=== PATIENT | male | born 1990 | race Caucasian/White ===

== ENCOUNTER 2020-07-06 11:44 | Outpatient (REF) | payer MEDICAID, SELFPAY ==
[2020-07-06 21:19] LABS: HCT 44.5 % (40.0-50.0); HGB 15.4 g/dL (13.5-17.5); MCH 31.1 pg (27.0-33.0); MCHC 34.6 % (32.0-36.0); MCV 89.9 fL (80-95); MPV 11.6 fL (8.0-11.0); Platelet Count 239 10^3/uL (130-400); RBC 4.95 10^6/uL (4.36-5.78); RDW-SD 39.3 fL
[2020-07-06 21:44] LABS: ALT 34 U/L (16-63); AST 19 U/L (15-37); Albumin 4.1 g/dL (3.4-5.0); Alkaline Phosphatase 98 U/L (46-116); Anion Gap 6.9 mmol/L (3-11); BUN 19 mg/dL (7-18); Bilirubin, Total 0.3 mg/dL (0.2-1.0); CO2 28.1 mmol/L (21.0-32.0); CREATININE 1.1 mg/dL (0.70-1.30); Calcium 9.1 mg/dL (8.5-10.1); Calculated LDL 110 mg/dL (<100); Chloride 107 mmol/L (98-107); Cholesterol 195 mg/dL (<200); Glucose 85 mg/dL (74-106); HDL Cholesterol 66 mg/dL (40-60); Potassium 4.3 mmol/L (3.5-5.1); Sodium 142 mmol/L (136-145); Triglyceride 96 mg/dL (<150)
== END 2020-07-06 11:45 | disposition home or self-care (01) ==
LOC: NCHCN 11:44
PROVIDERS: Visit Provider Nurse Practitioner Family
DX: Z13.0 Encounter for screening for diseases of the blood and blood-forming organs and certain disorders involving the immune mechanism (principal); Z13.228 Encounter for screening for other metabolic disorders; Z13.220 Encounter for screening for lipoid disorders; Z00.00 Encounter for general adult medical examination without abnormal findings
CPT/HCPCS: 80053; 80061; 85027